=== PATIENT | male | born 1965 | race African-American/Black ===

== ENCOUNTER → 2018-07-18 | Outpatient (REF) | payer OTHER ==
[~2018-07-18] MED LIST: AMLODIPINE BESYL5 MG PO; METFORMIN500 M2 PO; NAPROSYN500 MG PO; PREDNISONE20 MG PO; SIMVASTATIN40 MG PO; ULTRAM50 MG OR
[2018-07-18 08:43] LABS: HEMATOCRIT 44.5 % (39.0-50.0); HEMOGLOBIN 14.7 g/dl (14.0-18.0); IMMATURE GRANULOCYTES 0.2 % (0.0-5.0); MEAN CELL VOLUME 92.9 fL CALC (80.0-100.0); MEAN CORPUSCULAR HGB 30.7 pG CALC (26.0-32.0); NEUT# 2.67 thou/uL (1.82-7.42); RED BLOOD COUNT 4.79 mill/uL (4.70-6.10); RED CELL DISTRI WIDTH 13.4 % (11.5-15.5)
[2018-07-18 08:58] LABS: ALBUMIN 4.6 g/dL (3.2-5.0); ALKALINE PHOSPHATASE 81 u/l (38-126); ANION GAP 16 (6-22 (CALC)); BILIRUBIN, TOTAL 0.4 mg/dL (0.0-1.4); BUN 17 mg/dL (9-20); BUN/CREATININE RATIO 18 (12-20 (CALC)); CALCULATED LDLCHOLESTEROL 112 mg/dL (62-129 (CALC)); CARBON DIOXIDE 28 mmol/l (22-30); CHLORIDE 101 mmol/l (95-108); CHOLESTEROL HDL RATIO 3.3 (<4.4 (CALC)); GFR > 60 ML/MIN (>=60 (CALC)); GFR FOR AFR.AMER. > 60 ML/MIN (>=60 (CALC)); HDL CHOLESTEROL 54 mg/dL (>=40); SGOT/AST 19 u/l (17-59); SODIUM 140 mmol/l (137-146); TOTAL CHOLESTEROL 178 mg/dl (0-199); TOTAL PROTEIN 7.5 g/dL (6.3-8.2); TOTAL TRIGLYCERIDES 59 mg/dl (30-149); VLDL CHOLESTROL 12 mg/dl (8-62 (CALC))
[2018-07-18 09:05] LABS: POTASSIUM 5.2 mmol/l (3.5-5.1)
[2018-07-18 09:24] LABS: TSH, 3RD GENERATION 1.49 uIU/mL (0.47 - 4.68)
== END | disposition home or self-care (01) | DRG 639 ==
LOC: LAB 06:41
PROVIDERS: ATTEND Internal Medicine
DX: E11.9 Type 2 diabetes mellitus without complications (principal); E03.9 Hypothyroidism, unspecified; E78.49 Other hyperlipidemia; Z79.899 Other long term (current) drug therapy

== ENCOUNTER 2019-01-12 01:45 | Emergency (ER) | payer OTHER ==
[~2019-01-12] VITALS: Ht 185.4 cm; Wt 137.2 kg
[2019-01-12] MEDS ORDERED: LOSARTAN POTAS100 MG PO (02:16)
[2019-01-12] MEDS ORDERED: MIRALAX3350 N1 PO (03:09)
[2019-01-12 04:04] VITALS: BP 128/73
== END 2019-01-12 03:20 | disposition home or self-care (01) | DRG 392 ==
LOC: ED 01:45
DX: K59.00 Constipation, unspecified (principal); E11.9 Type 2 diabetes mellitus without complications; I10 Essential (primary) hypertension

== ENCOUNTER 2020-06-23 10:08 | Inpatient (IN) | payer OTHER ==
[~2020-06-23] VITALS: Ht 185.4 cm; Wt 139.0 kg
[~2020-06-23 10:08] MED LIST changes: +LOSARTAN POTAS100 MG PO; +MIRALAX3350 N1 PO
--- NOTE | 2020-06-23 10:20 | NUR ---
PT AMBUALTED TO ROOM 9 WITH STEADY GAIT
[2020-06-23 11:01] LABS: HEMATOCRIT 42.7 % (39.0-50.0); HEMOGLOBIN 14.1 g/dl (14.0-18.0); IMMATURE GRANULOCYTES 0.3 % (0.0-5.0); MEAN CELL VOLUME 89.9 fL CALC (80.0-100.0); MEAN CORPUSCULAR HGB 29.7 pG CALC (26.0-32.0); NEUT# 4.4 thou/uL (1.82-7.42); RED BLOOD COUNT 4.75 mill/uL (4.70-6.10); RED CELL DISTRI WIDTH 13.5 % (11.5-15.5)
[2020-06-23 11:19] LABS: ALBUMIN 4.3 g/dL (3.2-5.0); ALKALINE PHOSPHATASE 56 u/l (38-126); BILIRUBIN, TOTAL 0.5 mg/dL (0.0-1.4); BUN 12 mg/dL (9-20); BUN/CREATININE RATIO 13 (12-20 (CALC)); CARBON DIOXIDE 26 mmol/l (22-30); CHLORIDE 96 mmol/l (95-108); CREATININE 0.9 mg/dL (0.7-1.3); GFR > 60 ML/MIN (>=60 (CALC)); GFR FOR AFR.AMER. > 60 ML/MIN (>=60 (CALC)); POTASSIUM 4.5 mmol/l (3.5-5.1); TOTAL PROTEIN 7.6 g/dL (6.3-8.2)
[2020-06-23 11:24] LABS: ANION GAP 14 (6-22 (CALC)); SGOT/AST 62 u/l (17-59); SODIUM 131 mmol/l (137-146)
--- NOTE | 2020-06-23 11:30 | NUR ---
PT STATES THAT IN THE LAST TWO DAYS HE HAS BEEN EXPERIANCING WHAT HE WOULD DISCRIBE BURINING IN THE CHEST OR GASTRO REFLUX SYSMPTOMS. HE HAS BEEN SOB AND STATES FEELING TIGHTNESS ALONG WITH THE BURNING. CHILLS ARE FELT OCCATIONALLY. AFIBRILE./ LUNGS DIMINISHED IN LOWER LUNGS BILAT. AOX4
--- NOTE | 2020-06-23 12:30 | NUR ---
ANTIBIOTICS INFUSING INTO PATENT IV. PT IS CURENTLY WATCHING TV. CALL LIGHT WITHIN REACH. WAS PLACED ON O2 EARLIER BECAUSE OF DECLINING SATS OF 89-91%. PT CURRENTLY IN NO DISTRESS.
--- NOTE | 2020-06-23 13:30 | NUR ---
PT IS SITTING ON STRETCHER WATCHING TV. DENIES ANY NEEDS AT THIS TIME. IS UPDATED ON PENDING ADMISSION. CALL LIGHT WITHIN REACH
--- NOTE | 2020-06-23 14:30 | NUR ---
PT NOTIFIED THAT HE WILL BE HELD IN ER FOR A TIME LONGER UNTIL THERE IS A ROOM AVAILIABLE IN [facility]. TRAY OF FOOD GIVEN. CALL LIGHT WITHIN REACH. PT CONTINUES TO BE IN NO DISTRESS
--- NOTE | 2020-06-23 15:30 | NUR ---
PT RESTING ON STRETCHER WATCHING TV. DENIES ANY NEEDS AT THIS TIME
--- NOTE | 2020-06-23 16:30 | NUR ---
PT UPDATED ON WAIT, IS WATCHING TV WITH CALL LIGHT WITHIN REACH. DENIES ANY NEEDS AT THIS TIME
--- NOTE | 2020-06-23 17:35 | NUR ---
REPORT CALL TO TRIXIE KOEHLER
--- NOTE | 2020-06-23 17:57 | NUR ---
Admission Note Report Given to: SBAR PRINTED TO FLOOR Transported by: X Wheelchair Stretcher Transported with: X Nurse Transporter X Patent IV O2 X Protohistorian Location: ICU X [facility]
--- NOTE | 2020-06-23 17:59 | NUR ---
PT ARRIVED FROM ER VIA WC WITH STAFF. IV SITE IS FREE FROM REDNESS OR EDEMA,
[2020-06-23 18:00] VITALS: BP 151/78
--- NOTE | 2020-06-23 18:15 | NUR ---
ASSESSMENT IS COMPLETED: IV SITE IS FREE FROM REDNESS OR EDEMA. HR IS REG.PULSES ARE STRONG X4, ABD IS SOFT WITH ACTIVE BS. TELE MONITOR IN PLACE. CONTINUE TO OSBEFVE AND MONITOR.
[2020-06-23 19:45] VITALS: BP 159/75
[2020-06-24 00:11] VITALS: BP 178/88
--- NOTE | 2020-06-24 01:49 | NUR ---
Pt resting quietly in bed, per pt all his needs are being met. no complaints voiced. Dry cough continues, per pt it doesnt bother him. on O2 @ 2L. Pt on tele, as of the midnight tele report pt is running sinus rhythm at 60bpm. Pt admitted for chest pain at this time pt is denying any chest pain. Per Pt he has not had a BM since 06/19/20, MOM adminstered and nurse educated on the importance of staying hydrated. Pt indicated understanding verbally. IV fluids, NS, running at 100ml/hr into 20 guage in L wrist. will continue to monitor.
[2020-06-24 04:00] VITALS: BP 140/76
--- NOTE | 2020-06-24 04:02 | NUR ---
Pt resting in bed with eyes closed. No complaints voiced at this time. breathing even and unlabored. No complaints of chest pain.
--- NOTE | 2020-06-24 05:11 | NUR ---
Pt awoke and requested Tylenol for a headache and neck pain, tylenol adminstered as per orders. Following Tylenol adminstration pt temperature was checked and a low grade fever of 100.6 was noted. A new bag of IV fluids was hung and is running at 100ml/hr into his L wrist via a 20 guage IV site. Pt tolerated well. will follow up with pt in the next hour to check for decreased pain and decreased temperature.
[2020-06-24 06:20] LABS: HEMATOCRIT 40.3 % (39.0-50.0); HEMOGLOBIN 13.3 g/dl (14.0-18.0); IMMATURE GRANULOCYTES 0.3 % (0.0-5.0); MEAN CELL VOLUME 89.2 fL CALC (80.0-100.0); MEAN CORPUSCULAR HGB 29.4 pG CALC (26.0-32.0); NEUT# 5.05 thou/uL (1.82-7.42); RED BLOOD COUNT 4.52 mill/uL (4.70-6.10); RED CELL DISTRI WIDTH 13.5 % (11.5-15.5)
[2020-06-24 06:49] LABS: CHOLESTEROL HDL RATIO 3.7 (<4.4 (CALC)); MAGNESIUM 2.2 mg/dL (1.6-2.3)
--- NOTE | 2020-06-24 07:40 | NUR ---
REPORT RECEIVED FROM POLI.
--- NOTE | 2020-06-24 08:00 | NUR ---
ASSESSMENT DONE . PATIENT IS A&O X3. PATIENT STATED HE IS COLD. MADE ROOM WARM AND PROVIDED A WARM BLANKET. PATIENT STATED HE HAS A HEADACHE BUT DENIES PAIN MEDICATIONS. PATIENT STATED HE WANTS TO TAKE A SHOWER LATER. LUNGS SOUND DIMINISHED . O2 AT 2L VIA NC. PATIENT HAS A DRY COUGH. TELE IN PLACE. PATIENT DENIES ANY OTHER NEEDS AT THIS TIME. CALL LIGHT IN REACH.
[2020-06-24 08:08] VITALS: BP 140/78
--- NOTE | 2020-06-24 11:00 | NUR ---
PATIENT IS SITTING IN RECLINER. PATIENT STATED HIS HEADACHE IS LESS. PATIENT STATED WHEN HE SPEAKS FAST HE HAS SOB. O2 AT 2L VIA NC. CHECK PATIENT 02 IS 95%. PATIENT DENIES NEEDS AT THIS TIME. CALL LIGHT IN REACH.
[2020-06-24 11:30] VITALS: BP 138/62
[2020-06-24] MEDS ORDERED: ADLT ASA LOW81 MG PO (12:29)
[2020-06-24] MEDS ORDERED: MEDDOSEPAK PO (12:32)
[2020-06-24] MEDS ORDERED: TAM75CAP PO (12:32)
[2020-06-24 14:19] LABS: ALBUMIN 3.6 g/dL (3.2-5.0); ALKALINE PHOSPHATASE 50 u/l (38-126); ANION GAP 12 (6-22 (CALC)); BILIRUBIN, TOTAL 0.4 mg/dL (0.0-1.4); BUN 18 mg/dL (9-20); BUN/CREATININE RATIO 16 (12-20 (CALC)); CARBON DIOXIDE 23 mmol/l (22-30); CHLORIDE 98 mmol/l (95-108); CREATININE 1.1 mg/dL (0.7-1.3); GFR > 60 ML/MIN (>=60 (CALC)); GFR FOR AFR.AMER. > 60 ML/MIN (>=60 (CALC)); POTASSIUM 4.3 mmol/l (3.5-5.1); SODIUM 129 mmol/l (137-146); TOTAL PROTEIN 6.5 g/dL (6.3-8.2)
[2020-06-24 14:23] LABS: SGOT/AST 124 u/l (17-59)
--- NOTE | 2020-06-24 16:00 | NUR ---
PATIENT IS STANDING NEXT TO THE WINDOW WITH NO S/S OF DISTRESS NOTED. PATIENT DENIES ANY OTHER NEEDS AT THIS TIME. CALL LIGHT IN REACH.
--- NOTE | 2020-06-24 16:15 | NUR ---
REPORT GIVEN TO BRITTNI COSBY
--- NOTE | 2020-06-24 16:20 | NUR ---
PT RECEIVED FROM [employer] @ [employer], SITTING UP AT BEDSIDE, ALERT AND ORIENTED, NO C/O DISCOMFORT, O2 @ 2L VIA NC IN PLACE,TELE MONITOR IN PLACE, CALL BUSTOS IN REACH.
[2020-06-24 17:20] VITALS: BP 137/63
--- NOTE | 2020-06-24 18:10 | NUR ---
PT RECEIVED FROM [facility] @ [id number], RESTING IN BED IN SIDE-LYING POSITION, O2 @ 2L VIA NC IN PLACE, TELE MONITOR IN PLACE, IVF INFUSING, CALL BUSTOS IN REACH.
[2020-06-24 19:00] VITALS: BP 159/76
--- NOTE | 2020-06-24 20:30 | NUR ---
RECEIVED REPORT FOR THIS PT AND IN BED WITH EYES OPEN AND ABLE TO MAKE NEEDS KNOWN. OXYGEN THERAPY IN PLACE AT 2LNC WITH NO RESPIRATORY DISTRESS NOTED. CALL LIGHT WITHIN REACH. WILL CONTINUE TO OBSERVE
[2020-06-25 01:00] VITALS: BP 150/71
--- NOTE | 2020-06-25 01:52 | NUR ---
PT IN BED WITH EYES OPEN. COMPLAINED OF PAIN AT 4 ON SCALE OF 1-10 WITH 10 GREATEST TO HEAD. TYLENOL WAS GIVEN ORDERED. RSPIRATION EVEN AND NON LABORED. NORMAL SALINE RUNNING AT 100M/HR AND TOLERATING WELL. HOB ELEVATED AND CALL LIGHT WITHIN REACH. WILL CONTINUE TO OBSERVE
[2020-06-25 05:00] VITALS: BP 149/73
[2020-06-25 05:32] LABS: HEMATOCRIT 36.5 % (39.0-50.0); HEMOGLOBIN 12.1 g/dl (14.0-18.0); IMMATURE GRANULOCYTES 0.3 % (0.0-5.0); MEAN CELL VOLUME 90.3 fL CALC (80.0-100.0); MEAN CORPUSCULAR HGB CONC 33.2 g/dL CAL (32.0-36.0); NEUT# 5.4 thou/uL (1.82-7.42); RED BLOOD COUNT 4.04 mill/uL (4.70-6.10); RED CELL DISTRI WIDTH 13.6 % (11.5-15.5)
[2020-06-25 05:52] LABS: ALBUMIN 3.5 g/dL (3.2-5.0); ALKALINE PHOSPHATASE 50 u/l (38-126); ANION GAP 10 (6-22 (CALC)); BILIRUBIN, TOTAL 0.5 mg/dL (0.0-1.4); BUN 13 mg/dL (9-20); BUN/CREATININE RATIO 16 (12-20 (CALC)); CARBON DIOXIDE 25 mmol/l (22-30); CHLORIDE 101 mmol/l (95-108); CREATININE 0.8 mg/dL (0.7-1.3); GFR > 60 ML/MIN (>=60 (CALC)); GFR FOR AFR.AMER. > 60 ML/MIN (>=60 (CALC)); POTASSIUM 4.5 mmol/l (3.5-5.1); SGOT/AST 178 u/l (17-59); SODIUM 132 mmol/l (137-146); TOTAL PROTEIN 6.3 g/dL (6.3-8.2)
--- NOTE | 2020-06-25 06:38 | NUR ---
PT IN BED WITH EYES CLOSED. NO S/S OF DISTRESS NOTED. MEDS GIVEN AND TOLERATED WELL. WAS GIVEN MILK OF MAGNESIA FOR CONSTIPATION AND PRUNE JUICE GIVEN. NORMAL SALINE RUNNING AT 100ML/HR WITH COMPLICATIONS NOTED. LUG SOUND ARE CLEAR/DIMINISHED. HOB ELEVATED AND CALL LIGHT WITHIN REACH. WILL CONTINUE TO OBSERVE
--- NOTE | 2020-06-25 07:00 | NUR ---
SHIFT CHANGE REPORT, PT AWAKE ALERT AND ORIENTED, NO C/O DISCOMFORT, O2 @ 2L VIA NC IN PLACE, TELE MONITOR IN PLACE, CALL BUSTOS IN RECH.
[2020-06-25 07:38] VITALS: BP 160/85
--- NOTE | 2020-06-25 09:31 | NUR ---
PT JUST GOT OOB SITTING UP IN RECLINER, C/O SHARP NON RADIATING CP @ 8, VS MEASURED = 88,152/83,PT% ON 2L, SOB WITH SHALLOW BREATHING NOW, WELL SERVICING RIG OPERATOR NOTIFIED, STAT EKG ORDERED, WILL CONTINUE TO MONITOR AND ADDRESS NEEDS.
[2020-06-25 10:35] VITALS: BP 158/85
--- NOTE | 2020-06-25 12:00 | NUR ---
SITTING UP IN RECLINER, REFUSED LUNCH STATING HE DIDNT LIKE WHAT WAS SERVED, ALTERNATE MEAL ORDERDED.
[2020-06-25 14:55] VITALS: BP 127/78
--- NOTE | 2020-06-25 16:00 | NUR ---
RELAXING IN RECLINER WATCHING TV, STATED DRANK MAGCIT[employer] ONLY FEW MINUTES AGO, WILL CONTINUE TO MONITOR.
[2020-06-25 19:00] VITALS: BP 116/80
[2020-06-26] VITALS: BP 152/86
[2020-06-26 04:33] VITALS: BP 146/84
--- NOTE | 2020-06-26 07:30 | NUR ---
REPORT RECEIVED; PT AMBULATING IN ROOM ON ROOM AIR; STATES THAT HE REMOVED IT TEMPORAILY TO REPOSITION HIMSELF INTO BEDSIDE CHAIR. ALERT AND ORIENTED X 3. DENIES PAIN. RESPIRATIONS SLIGHLY LABORED WITH EXERTION; SPO2 98-100% ON ROOM AIR; OXYGEN REMAINS OFF AND WILL CONTINUE TO MONITOR ON ROOM AIR. DRY, NON PRODUCTIVE COUGH. IV FLUIDS INFUSING WITHOUT DIFFICULTY; IV SITE APPEARS HEALTHY. POC REVIEWED; PT ENCOURAGED TO VERBALIZE CONCERNS; SAFETY MEASURES IN PLACE. CALL LIGHT WITHIN REACH.
[2020-06-26 08:19] VITALS: BP 149/84
--- NOTE | 2020-06-26 08:25 | NUR ---
IV FLUIDS DISCONNECTED FOR SHOWER.
[2020-06-26 08:50] LABS: SGOT/AST 77 u/l (17-59)
--- NOTE | 2020-06-26 10:50 | NUR ---
SPO2 94-96% ON ROOM AIR AFTER EXERTION OF SHOWER. TELEMETRY RECONNECTED. DR. ROSALES AND NEENA AT BEDSIDE.
[2020-06-26 11:13] VITALS: BP 122/69
--- NOTE | 2020-06-26 14:00 | NUR ---
SITTING UP IN CHAIR WATCHING TV; ALERT AND ORIENTED. CONTINUES TO DENY PAIN AND SOB; REQUESTS THAT OXYGEN STAY PRN AT BEDSIDE HE WANTS TO USE IT TONIGIHT WHEN HE GOES TO SLEEP. IV FLUIDS INFUSING AT 100 ML/HR. INDEPENDNET IN ROOM; CALL LIGHT WITHIN REACH.
[2020-06-26 14:30] VITALS: BP 132/71
--- NOTE | 2020-06-26 18:00 | NUR ---
REMDESIVIR, ROCEPHIN, AND ZITHROMAX ALL INFUSED WITHOUT DIFFICULTY.
[2020-06-26 19:00] VITALS: BP 160/89
--- NOTE | 2020-06-26 20:00 | NUR ---
RECEIVED REPORT FROM NURSE MANNING, PATIENT RESTING IN BED, HOOKED TO O2 @ 2LPM VIA NC, BREATHING SHALLOW ULABORED WITH ONGOING IV ON LEFT WRIST NS @ 100CC/HR INFUSING WELL, REMAINS ON TELE SR 60, DENIES PAIN, DEMONSTRATED THE USED OF SPIROMETER INSPIRATORY VOLUME AT 1OOO, CALL LIGHT AT REACH.
[2020-06-27] VITALS: BP 149/79
--- NOTE | 2020-06-27 | NUR ---
PATIENT APPEARS TO BE ASLEEP WITH EYES CLOSED, BREATHING EVEN UNLABORED CALL LIGHT AT REACH
--- NOTE | 2020-06-27 01:28 | NUR ---
PATIENT C/O HEADCAHE PRN TYLENOL GIVEN.
[2020-06-27 04:00] VITALS: BP 141/86
[2020-06-27 05:15] LABS: HEMATOCRIT 42.4 % (39.0-50.0); HEMOGLOBIN 13.9 g/dl (14.0-18.0); IMMATURE GRANULOCYTES 0.4 % (0.0-5.0); MEAN CELL VOLUME 90.6 fL CALC (80.0-100.0); MEAN CORPUSCULAR HGB 29.7 pG CALC (26.0-32.0); MEAN CORPUSCULAR HGB CONC 32.8 g/dL CAL (32.0-36.0); NEUT# 4.6 thou/uL (1.82-7.42); RED BLOOD COUNT 4.68 mill/uL (4.70-6.10); RED CELL DISTRI WIDTH 13.7 % (11.5-15.5)
--- NOTE | 2020-06-27 05:32 | NUR ---
PATIENT RESTING IN BED WITH EYES CLOSED, BREATHING SHALLOW UNLABORED, CALL LIGHT AT REACH.
[2020-06-27 05:44] LABS: ALBUMIN 3.8 g/dL (3.2-5.0); ALKALINE PHOSPHATASE 56 u/l (38-126); ANION GAP 13 (6-22 (CALC)); BILIRUBIN, TOTAL 0.5 mg/dL (0.0-1.4); BUN 17 mg/dL (9-20); BUN/CREATININE RATIO 22 (12-20 (CALC)); C-REACTIVE PROTEIN 3.1 mg/dL (0-0.9); CARBON DIOXIDE 26 mmol/l (22-30); CHLORIDE 102 mmol/l (95-108); CREATININE 0.8 mg/dL (0.7-1.3); GFR > 60 ML/MIN (>=60 (CALC)); GFR FOR AFR.AMER. > 60 ML/MIN (>=60 (CALC)); SGOT/AST 49 u/l (17-59); SODIUM 136 mmol/l (137-146); TOTAL PROTEIN 7.1 g/dL (6.3-8.2)
[2020-06-27 05:45] LABS: POTASSIUM 5.2 mmol/l (3.5-5.1)
--- NOTE | 2020-06-27 07:15 | NUR ---
REPORT RECEIVED FROM BRITTNI REID. PT SITTING UP IN BEDSIDE CHAIR REQUESTING TO TAKE A SHOWER. ALERT AND ORIENTED X 3. DENIES PAIN; REPORTS THAT TYLENOL GIVEN ON PREVIOUS SHIFT WAS EFFECTIVE FOR HEADACHE. RESPIRATIONS EVEN AND UNLABORED ON ROOM AIR; PT REMOVED OXYGEN; SPO2 96%. POC REVIEWED; PT ENCOUAGED TO VERBALIZE CONCERNS; STATES UNDERSTANDING AND REQUESTS SOMETHING TO HELP HIM HAVE A BOWEL MOVEMENT. SAFETY MEASURES IN PLACE. CALL LIGHT WITHIN REACH.
[2020-06-27 08:14] VITALS: BP 148/80
--- NOTE | 2020-06-27 08:57 | NUR ---
MILK OF MAGNESIA MIXED IN WARM PRUNE JUICE PROVIDED WITH AM MEDS. PT UP FOR SHOWER; NOW RECONNECTED TO TELE AND IV FLUIDS.
[2020-06-27 11:11] VITALS: BP 136/75
--- NOTE | 2020-06-27 13:00 | NUR ---
INDEPENDENT IN ROOM; VOIDING IN BEDSIDE URINAL. REMAINS ON ROOM AIR; SPO2 96-98%. IV FLUIDS NOW INFUSING AT KVO; SITE APPEARS HEALTHY. SINUS RHYTHM ON PRODUCT PICKER.
[2020-06-27 14:30] VITALS: BP 137/90
--- NOTE | 2020-06-27 17:00 | NUR ---
REMDESIVIR, ROCEPHIN, AND ZITHROMAX INFUSED. PT HAS NO REQUESTS OR COMPLAINTS AT THIS TIME. CALL LIGHT WITHIN REACH.
[2020-06-27 18:45] VITALS: BP 140/66
--- NOTE | 2020-06-27 20:10 | NUR ---
NOW RESTING IN BED SUPINE WITH OXYGEN IN PLACE 2L VIA NC. ACCU CHECK 186. ALERT AND ORIENTED X 3. DENIES PAIN. RESPIRATIONS EVEN AND UNLABORED; LUNG SOUNDS ARE DIMINISHED. IV FLUIDS INFUSING AT KVO; IV SITE APPEARS HEALTHY. TELE IN PLACE. ENCOURAGED USE OF INCENTIVE SPIROMETER.
[2020-06-28] VITALS: BP 167/84
--- NOTE | 2020-06-28 00:25 | NUR ---
PT RESTING WITH EYES CLOSED AND NO SIGNS OF DISTRESS. SAFETY MEASURES IN PLACE. CALL LIGHT WITHIN REACH.
--- NOTE | 2020-06-28 01:12 | NUR ---
RECEIVED REPORT FROM KERRI ELKINS. PATIENT STABLE.
[2020-06-28 01:45] VITALS: BP 147/78
--- NOTE | 2020-06-28 03:23 | NUR ---
PATIENT IN BED AT THIS TIME WITH EYES CLOSED AND RESPIRATIONS EASY AND UNLABORED AT THIS TIME. 02 REMAINS ON AT 2 LITERS. SIDERAILS ARE UP X2 CALL LIGHT IS WITHIN REACH.
[2020-06-28 03:45] VITALS: BP 144/80
[2020-06-28 06:06] LABS: HEMATOCRIT 42.1 % (39.0-50.0); HEMOGLOBIN 13.7 g/dl (14.0-18.0); MEAN CELL VOLUME 90.3 fL CALC (80.0-100.0); MEAN CORPUSCULAR HGB 29.4 pG CALC (26.0-32.0); MEAN CORPUSCULAR HGB CONC 32.5 g/dL CAL (32.0-36.0); RED BLOOD COUNT 4.66 mill/uL (4.70-6.10); RED CELL DISTRI WIDTH 13.6 % (11.5-15.5)
[2020-06-28 06:10] LABS: ANION GAP 11 (6-22 (CALC)); BUN 16 mg/dL (9-20); BUN/CREATININE RATIO 21 (12-20 (CALC)); CARBON DIOXIDE 27 mmol/l (22-30); CHLORIDE 101 mmol/l (95-108); CREATININE 0.7 mg/dL (0.7-1.3); GFR > 60 ML/MIN (>=60 (CALC)); GFR FOR AFR.AMER. > 60 ML/MIN (>=60 (CALC)); SODIUM 134 mmol/l (137-146)
[2020-06-28 06:12] LABS: POTASSIUM 5.2 mmol/l (3.5-5.1)
[2020-06-28 06:45] VITALS: BP 142/80
--- NOTE | 2020-06-28 07:30 | NUR ---
PATIENT RESTING IN BED AT THIS TIME. DENEIS ANY NEEDS OUTSIDE SALESPERSON DONE SEE INTERVENTIONS. LUNG BRYAN ARE DIMINISHED THROUGHOUT AND O2 REMAINS ON AT 2L. SIDERAILS ARE UP X 2 CALL LIGHT IS WITHIN REACH.
--- NOTE | 2020-06-28 10:10 | NUR ---
6 MINUTE WALK TEST PREFORMED BY RESPIRTORY AT THIS TIME. 02 AT REST WAS NOTED AT 97% PATIENT SPO2 AFTER 02 REMOVED AND WALKED AFTER 5 MINUTES DROPPED TO 83%. PROVIDER BREA REAL APRN NOTIFIED OF FINDINGS. .
[2020-06-28] MEDS ORDERED: DEXAMETHASON6 MG PO (10:38)
[2020-06-28] MEDS ORDERED: ZITHROMAX250 MG PO (10:38)
[2020-06-28 11:00] VITALS: BP 142/85
--- NOTE | 2020-06-28 11:32 | NUR ---
PATIENT SITTING AT BEDSIDE PREPARING TO TAKE A SHOWER. PATIENT DENIES ANY PAIN AT THIS TIME OR NEEDS CALL LIGHT WITHIN REACH SIDERAILS UP X 2
--- NOTE | 2020-06-28 15:35 | NUR ---
Discharge instructions given. Patient verbalizes understanding of same. Discharged in stable condition via Wheelchair to Home with family. All belongings sent with pt.
== END 2020-06-28 15:40 | disposition home or self-care (01) | DRG 177 ==
LOC: ED 10:08 → ED-I 10:38 → ED 12:00 → ED-I 12:01 → MS2 16:21
PROVIDERS: Family Medicine; Internal Medicine; Nurse Practitioner; Physician Assistant; ADMIT Internal Medicine; ATTEND Internal Medicine
DX: U07.1 COVID-19 (principal); J12.82 Pneumonia due to coronavirus disease 2019; Z68.41 Body mass index [BMI] 40.0-44.9, adult; E87.1 Hypo-osmolality and hyponatremia; J10.1 Influenza due to other identified influenza virus with other respiratory manifestations; R09.02 Hypoxemia; I10 Essential (primary) hypertension; E11.9 Type 2 diabetes mellitus without complications; E78.5 Hyperlipidemia, unspecified; E66.9 Obesity, unspecified; Z79.84 Long term (current) use of oral hypoglycemic drugs
CPT/HCPCS: J1100; J1650